=== PATIENT | female | born 1940 | race Caucasian/White ===

== ENCOUNTER 2017-07-19 09:35 | Emergency (ER) | payer MEDICARE ==
--- NOTE | ~2017-07-19 | CR72 ---
[facility] A Service of [facility] [place] RADIOLOGY TEXT RESULTS PATIENT: ISABELA BAZZI LOCATION: SED : 42 UNIT #: [id number] AGE: [address]: Donta Don MD SEX: F ORDER DR: [id number] [address] [address] [id number] E MR#: [id number] Acc #: [id number] NAME: ISABELA BAZZI : 1940 SEX: F STUDY DATE/TIME: 07/19/2017 10:11 UNIT: SED ROOM: STUDY DESCRIPTION: CR Chest Single View Portable Attending Physician: Donta Don M.D. Ordering Physician: Donta Don M.D. Primary Care Physician: Alvarado Adams A.P.R.N. MEDICAL IMAGING REPORT This report is preliminary unless electronic signature is present. EXAM Portable chest HISTORY Shortness of breath and chest pain for the past 6 days. TECHNIQUE Single AP view chest was obtained compared with 12/30/2014. FINDINGS The heart and mediastinum are stable. The left lung is clear. There is a mass-like area of consolidation in the right infrahilar area. The exact location is unclear without a lateral view. It could represent either a mass or an area of dense alveolar consolidation. An upright PA and lateral view of the chest would be helpful for further characterization of this density for its location and characteristics. The patient may need a chest CT with contrast if it continues to have a mass-like appearance on the lateral view. No pleural fluid is seen and the vascular markings are normal. IMPRESSION Approximately 4 x 5 cm infrahilar density on the right, new since the previous chest x-ray. On this single view it has a mass-like appearance but could represent an elongated dense infiltrate as well. Recommend further evaluation with an upright PA and lateral view of the chest. If it continues to have a mass-like appearance on the lateral view, chest CT with contrast would be the next appropriate step in evaluation. The remaining lung marion are clear. Dictated by... Ander Mcintosh M.D. [facility] A Service of [facility] RADIOLOGY TEXT RESULTS PATIENT: ISABELA BAZZI LOCATION: [facility] [place] : 41 UNIT #: [id number] AGE: [address]: Donta Don MD SEX: F ORDER DR: THIS IS AN ELECTRONICALLY VERIFIED REPORT Ander Mcintosh M.D. at 07/19/2017 4:54 PM SANDRA/michael TD: 07/19/2017 12:56 JOB #: [id number] MEDICAL IMAGING REPORT Page 1 of 1
--- NOTE | ~2017-07-19 | EKG ---
PATIENT: ISABELA BAZZI UNIT #: [id number] Ventricular Rate: 79 BPM Atrial Rate: 79 BPM P-R Interval: 174 ms QRS Duration: 76 ms Q-T Interval: 354 ms QTC Calculation(Bezet): 405 ms P [place]: 76 degrees Calculated R [place]: 39 degrees Calculated T [place]: 55 degrees Diagnosis Line: Normal sinus rhythm Diagnosis Line: Left atrial enlargement Diagnosis Line: Cannot rule out Septal infarct (cited on or before Diagnosis Line: 30-DEC-2014) Diagnosis Line: Abnormal ECG Diagnosis Line: When compared with ECG of 30-DEC-2014 20:26, Diagnosis Line: No significant change was found Diagnosis Line: Confirmed by FERNANDA MARTINEZ MD ([id number]) on 07/20/2017 Diagnosis Line: 7:34:18 PM INTERPRETING MD: JUAN ALVARES
--- NOTE | ~2017-07-19 | CT57 ---
[facility] A Service of [facility] RADIOLOGY TEXT RESULTS PATIENT: ISABELA BAZZI LOCATION: SED : 41 UNIT #: [id number] AGE: [address]: Donta Don MD SEX: F ORDER DR: [id number] [address] [address] [id number] E MR#: [id number] Acc #: [id number] NAME: ISABELA BAZZI. : 1940 SEX: F STUDY DATE/TIME: 07/19/2017 11:54 UNIT: SED ROOM: STUDY DESCRIPTION: CT Chest Wo Cont Attending Physician: Donta Don M.D. Ordering Physician: Donta Don M.D. Primary Care Physician: Alvarado Adams A.P.R.N. MEDICAL IMAGING REPORT This report is preliminary unless electronic signature is present. EXAM CT chest. INDICATIONS Shortness of air for 6 days. Chest pain. TECHNIQUE CT of the thorax without contrast. Coronal and sagittal reconstructions were obtained. This CT exam was performed with one or more of the following radiation dose reduction techniques: automatic exposure control, adjustment of mA and/or kV according to patient size, and iterative reconstruction. COMPARISON Chest radiograph dated 07/19/2017, and CT chest dated 09/26/2009. FINDINGS There is a mass in the medial segment right middle lobe measuring 5.3 x 4.9 x 5.1 cm. The mass abuts the right pleural margin. There is some mild pleural thickening in this area measuring up to 0.8 cm. There is occlusion of the medial segment right middle lobe. There is probably an enlarged right hilar lymph node, however, lack of IV contrast limits evaluation. There is a borderline enlarged precarinal lymph node measuring 0.9 cm. A borderline subcarinal lymph node measures 1.1 cm. There is a small 5 mm pulmonary nodule in the posterior aspect of the right upper lobe. Small area of consolidation in the anterior aspect of the left upper lobe. There is a small air bronchograms through this area. This appearance most typical for pneumonia, however, can be followed. There is a small pulmonary nodule in the lingula measuring 0.7 cm. [facility] A Service of [facility] RADIOLOGY TEXT RESULTS PATIENT: ISABELA BAZZI LOCATION: [facility] [place] : 41 UNIT #: [id number] AGE: [address]: Donta Don MD SEX: F ORDER DR: There is moderate emphysema. No pericardial or pleural effusion. Thoracic aorta has diffuse atherosclerotic disease, however, there is no aneurysm. Limited images of the upper abdomen were obtained. There is no acute findings. The adrenal glands are within normal limits. No acute osseous abnormalities. IMPRESSION 1. Mass in the medial segment of right middle lobe measuring up to 5.3 cm. 2. The mass abuts the right anterior pleural margin and there is some mild pleural thickening in this region. This may represent pleural metastatic disease, however, is indeterminate. 3. There is a small area of consolidation in the anterior left upper lobe which probably represents a pneumonia, however, this can be followed. 4. Small noncalcified pulmonary nodules are indeterminate for metastatic disease. 5. Suspected right hilar lymphadenopathy and borderline enlarged mediastinal lymph nodes concerning for metastatic disease. Dictated by... Britton Romero M.D. THIS IS AN ELECTRONICALLY VERIFIED REPORT Britton Romero M.D. at 07/21/2017 9:46 AM FÁTIMA/judah TD: 07/19/2017 19:54 JOB #: [id number] MEDICAL IMAGING REPORT Page 1 of 1
[~2017-07-19 09:35] MED LIST: ALBUTEROL17 GM INH; ASPIRIN PO; DIOVAN160 MG; DIOVAN160 MG PO; GLUCOSAMINE CHO PO; HYDROCODON-ACE1 EAC9 PO; LIPITOR; LIPITOR20 MG PO; MONTELUKAST SOD10 MG; MULTI VITAMIN1 EACH PO; NIACIN500 M2 PO; OMEGA 3-6-9 11200 M1 PO; PROVENTIL4 MG; SINGULAIR PO; TYLENOL #3; VITAMIN D-32000 UNI2 PO; ZIAC; ZIAC 10-6.25 M1 EACH PO
[2017-07-19] MEDS ORDERED: TYLENOL #3 (09:43)
[2017-07-19] MEDS ORDERED: CLARITIN10 M2 (09:43)
[2017-07-19 10:21] LABS: BASOPHIL# 0.1 X10e3 (0-0.3); BASOPHIL% 0.8 % (0-2.5); EOSINOPHIL# 0.1 X10e3 (0-0.7); EOSINOPHIL% 0.7 % (0.0-7.0); HEMATOCRIT 39.4 % (35.0-45.0); HEMOGLOBIN 13.1 gm/dL (12.0-16.0); LYMPHOCYTE# 0.7 X10e3 (1.0-3.5); LYMPHOCYTE% 7.4 % (17.0-45.0); MEAN CELL VOLUME 82.8 FL (83-96); MEAN CORPUSCULAR HEMOGLOBIN 27.6 PG (28-34); MEAN CORPUSCULAR HGB CONC 33.3 g/dL (30-36); MEAN PLATELET VOLUME 7.8 FL (6.5-11.5); MONOCYTE% 11.9 % (3.0-12.0); NEUTROPHIL% 79.2 % (40-75); PLATELET COUNT 358 X10e3 (140-420); RED BLOOD COUNT 4.75 X10e (3.90-5.30); RED CELL DISTRIBUTION WIDTH 14.8 % (11.0-15.5); WHITE BLOOD COUNT 8.8 X10e3 (4.0-10.5)
[2017-07-19 10:22] LABS: DIFF IND NO
[2017-07-19 10:29] LABS: POC - CKMB 4.8 ng/mL (0.0-7.9); POC - TROPONIN <0.05 ng/mL (<=0.05)
[2017-07-19 10:58] LABS: ALBUMIN SERUM 3.3 g/dL (3.5-5.0); BILIRUBIN, DIRECT 0.1 mg/dL (0.0-0.2); BILIRUBIN,INDIRECT 0.5 mg/dL (0.0-0.9); BILIRUBIN,TOTAL 0.6 mg/dL (0.2-2.0); BUN/CREATININE RATIO 24.44; CALCIUM SERUM 9.3 mg/dL (8.4-10.2); CREATININE SERUM 0.9 mg/dL (0.6-1.4); GLOM FILT RATE Estimated 62.6 mL/min (>60); POTASSIUM 3.3 mmol/L (3.5-5.1)
[2017-07-19 12:12] LABS: POC - TROPONIN <0.05 ng/mL (<=0.05)
== END 2017-07-19 14:39 | disposition left against medical advice (07) ==
LOC: SED 09:35
PROVIDERS: Emergency Medicine
DX: J44.1 Chronic obstructive pulmonary disease with (acute) exacerbation (principal); J18.9 Pneumonia, unspecified organism; R09.02 Hypoxemia; R91.8 Other nonspecific abnormal finding of lung field; F17.200 Nicotine dependence, unspecified, uncomplicated; Z79.82 Long term (current) use of aspirin; Z79.899 Other long term (current) drug therapy; Z91.041 Radiographic dye allergy status
CPT/HCPCS: 36415; 71010; 71250; 80048; 80076; 82553; 83874; 83880; 84484; 85025; 87040; 93005; 94640; 96365; 96375; 99285; J0696; J1100